=== PATIENT | female | born 1995 | race Caucasian/White ===

== ENCOUNTER 2017-01-18 18:33 | Emergency (ER) | payer OTHER ==
[~2017-01-18] VITALS: Ht 167.6 cm; Wt 60.9 kg
[~2017-01-18 18:33] MED LIST: AZIT500T26 PO; BCPILLS PO; KETO10TA PO
[2017-01-18 18:34] VITALS: TEMP 36.7; Ht 167.6 cm; Wt 60.9 kg
[2017-01-18] MEDS ORDERED: ALBUT/IPRATROP 3MG/0.5MG NEB 3 ML VIAL INH STA (18:47)
--- NOTE | 2017-01-18 19:22 | EMERGENCY ROOM VISIT NOTE ---
History First contact with patient: 18:39 Chief Complaint: RESPIRATORY PROBLEMS Stated Complaint: PNEUMONIA, PAIN SPREADING Nursing Triage Summary: patient states last week she was diagnosed with pneumonia and was was prescribed antibiotics. patient states she has no improvement in symptoms and is experiencing SOB , cough, and congestion still. History of Present Illness The patient is a 21 year old female who presents to the Emergency Room with complaints of ongoing right-sided chest pain, dyspnea, and overall not feeling better after Zithromax. The patient was seen here in the emergency department last week and was diagnosed with a right lower lobe pneumonia. She was advised to take the antibiotics, get plenty of rest, drink fluids, and follow-up with her PCP in one week. She states [facility] does not accept her insurance, and her PCP is 3 hours away. She is not feeling better at this point despite the antibiotics, and felt that she should be reevaluated. She was advised to return in 2 weeks to have a repeat chest x-ray performed. The patient states she does feel that the cough is improving slightly, however the pain in the right side of her chest is ongoing. She states that this time the pain does seem to be radiating down into her waist. She does continue to have an occasional, minimally productive cough. She denies any fever, chills, nausea, vomiting, diarrhea, or constipation. The patient denies any significant abdominal pain, with the exception of the pain in her waist. She describes pain in her chest as sharp, and it is associated with difficulty breathing. The dyspnea is worse with ambulating or when trying to take a deep breath. The patient has been taking ibuprofen and Tylenol intermittently to help with the pain. She has not taken any cough medication. She does report mild congestion , sore throat. Review of Systems A complete 10 point review of systems was reviewed with the patient with pertinent positives and negatives as per history of present illness. All else were negative. Past Medical/Surgical History Medical Problems: (1) Cellulitis of earlobe (2) Contact dermatitis (3) No Known Active Medical Problems Social History Smoking Status: Never Smoker Drug Use: none Marital Status: single Current/Historical Medications Scheduled Azithromycin (Zithromax), 500 MG PO DAILY Control Pills ( Control Pills), 1 TAB PO HS Cholecalciferol (Vitamin D3), 1 TAB PO DAILY Cyanocobalamin (B12), 1 TAB PO DAILY Multiple Vitamins W/ Minerals (Hair/Skin/Nails), 3 TABS PO DAILY Scheduled PRN Acetaminophen (Tylenol), 500 MG PO BID PRN for Pain Albuterol Sulfate (Proair Respiclick), 2 PUFFS INH Q4 PRN for Wheezing Benzonatate (Tessalon Perles), 200 MG PO TID PRN for Cough Ibuprofen (Advil), 600 MG PO TID PRN for Pain Physical Exam Vital Signs Date Time Temp Pulse Resp B/P (MAP) Pulse Ox O2 Delivery O2 Flow Rate FiO2 01/18/17 18:49 97 Room Air 01/18/17 18:34 36.7 70 18 138/84 98 Room Air Physical Exam VITALS: Vitals are noted on the nurse's note and reviewed by myself. Vital signs stable. GENERAL: This is a 21-year-old white female, in no acute distress, nondiaphoretic, well-developed well-nourished. SKIN: The skin was without rashes, erythema, edema, or bruising. There is no tenting of the skin. Capillary reflex less than 2 seconds. HEAD: Normocephalic atraumatic. EARS: External auditory canals clear, tympanic membranes pearly mancilla without erythema or effusion bilaterally. EYES: Pupils equal round and reactive to light and accommodation. Conjunctivae without injection, sclerae without icterus. Extraocular movements intact. NOSE: Patent, turbinates without inflammation or discharge. No sinus tenderness. MOUTH: Mucous membranes moist. Tonsils are not enlarged. Pharynx without erythema or exudate. Uvula midline. Airway patent. Tongue does not deviate. NECK: Supple without nuchal rigidity. No lymphadenopathy. No thyromegaly. Cervical spine is nontender. No JVD. HEART: Regular rate and rhythm without murmurs gallops or rubs. LUNGS: Mild wheezing and rhonchi throughout. No dullness to percussion. No retractions or accessory muscle use. The patient is very tender in the right lateral ribs. MUSCULOSKELETAL: No muscle atrophy, erythema, or edema noted. Full range of motion without joint tenderness in all extremities. No tenderness to palpation. Normal gait. Strength 5/5 throughout. NEURO: Patient was alert and oriented to person place and time. Normal sensation to light and sharp touch. No focal neurological deficits. Medical Decision & Procedures ER Provider Diagnostic Interpretation: CHEST 2 VIEWS ROUTINE HISTORY: 21 years-old Female cough, right chest pain, pneumonia acute cough with right-sided chest pain and pneumonia COMPARISON: Chest radiograph 01/11/2017 TECHNIQUE: Frontal and lateral views of the chest FINDINGS: Cardiomediastinal and hilar silhouettes are within normal limits. There is no pneumothorax or pleural effusion. There is improved aeration of the right lung base from prior study with minimal linear subsegmental right basilar opacity now present within the area of previous airspace consolidation. Bones appear grossly intact. IMPRESSION: Improved aeration of the right lung base with persistent residual basal right lower lobe opacity, now appearing somewhat linear in morphology. This may reflect persistent pneumonia and/or developing pleural parenchymal scar formation. The above report was generated using voice recognition software. It may contain grammatical, syntax or spelling errors. Electronically signed by: Jeremías Harding M.D. 01/18/2017 7:56 PM Dictated Date/Time: 01/18/2017 7:51 PM Medications Administered Medications (Trade) Dose Ordered Sig/Latonya Route Start Time Stop Time Status Last Admin Dose Admin Albuterol/ Ipratropium (Duoneb) 3 ml NOW STAT INH 01/18/17 18:47 01/18/17 18:48 DC 01/18/17 18:54 3 ML Medical Decision The patient was seen and evaluated as above. She was given a DuoNeb treatment due to the wheezing and rhonchi noted in her lungs. She states she did not feel better after this treatment, and in fact states she began feeling worse. A repeat chest x-ray was ordered to evaluate the pneumonia at this time. It showed partial resolution of the pneumonia. I do feel that the patient's symptoms are related to her pneumonia. I had a long discussion with her at bedside regarding the healing process for pneumonia. I advised her that it may take up to several weeks until she begins feeling significantly better. She was encouraged to follow up outpatient with her PCP. I did recommend an inhaler and provided her with some cough medicine to help. She was given instructions on when to return to the emergency department. Discharge instructions were reviewed and the patient was discharged home in good condition. Differential diagnosis includes pneumonia, bronchitis, upper respiratory infection, costochondritis, rib fracture, malignancy, and others Medication Reconcilliation Current Medication List: was personally reviewed by me Blood Pressure Screening Patient's blood pressure: Normal blood pressure Impression Primary Impression: Pneumonia Departure Information Dispostion Home / Self-Care Condition GOOD Prescriptions Benzonatate (Tessalon Perles) 200 Mg Cap 200 MG PO TID Y for Cough, #30 CAP Prov: Gely Reyes PA-C 01/18/17 Albuterol Sulfate (Proair Respiclick) 108 Mcg/Act Aer 2 PUFFS INH Q4 Y for Wheezing, #1 INHALER Prov: Gely Reyes PA-C 01/18/17 Referrals No Doctor, Assigned (PCP) Patient Instructions ED Pneumonia Adult, My [facility] Additional Instructions You were seen in the emergency department for cough and difficulty breathing. You were diagnosed last week with pneumonia. Repeat chest x-ray did show some resolution of the pneumonia. You were given a prescription for an albuterol inhaler to use for wheezing. Please use this as directed. You may take benzonatate 3 times daily to help with cough. Please get plenty of rest and drink plenty of fluids. Ibuprofen(Motrin, Advil) may be used for fever or pain. Use 600mg every six hours as needed. Take with food. Avoid using more than 2400mg in a 24 hour period. Do not use 2400mg per day for more than three consecutive days without physician direction. Prolonged inappropriate use can lead to stomach upset or ulcers. (AND/OR) Acetaminophen(Tylenol) may be used for fever or pain. Use 1000mg every six hours as needed. Avoid using more than 3000mg in a 24 hour period. As discussed, it may take 4-6 weeks or longer for your symptoms to completely resolve. Continue to monitor for improvement, however you may not feel completely better for a while. Follow-up with your PCP next week for recheck. I do recommend a repeat chest x- ray in approximately 1 month to ensure complete resolution. Return to the emergency Department or see your PCP for worsening difficulty breathing, chest pain, fever, chills, nausea, vomiting, wheezing, or other concerning symptoms. School Instructions Return To School: 2 days Problem Qualifiers Primary Impression: Pneumonia Pneumonia type: due to unspecified organism Laterality: right Lung location : lower lobe of lung Qualified Codes: J18.1 - Lobar pneumonia, unspecified organism
[2017-01-18] MEDS ORDERED: ACET-1256 PO (19:25)
[2017-01-18] MEDS ORDERED: IBUP-1050 PO (19:25)
[2017-01-18] MEDS ORDERED: CYAN100073 PO (19:28)
[2017-01-18] MEDS ORDERED: CHOL1000 PO (19:28)
[2017-01-18] MEDS ORDERED: MULT-580 PO (19:28)
--- NOTE | 2017-01-18 19:57 | DIAGNOSTIC IMAGING REPORT ---
CHEST 2 VIEWS ROUTINE HISTORY: 21 years-old Female cough, right chest pain, pneumonia acute cough with right-sided chest pain and pneumonia COMPARISON: Chest radiograph 01/11/2017 TECHNIQUE: Frontal and lateral views of the chest FINDINGS: Cardiomediastinal and hilar silhouettes are within normal limits. There is no pneumothorax or pleural effusion. There is improved aeration of the right lung base from prior study with minimal linear subsegmental right basilar opacity now present within the area of previous airspace consolidation. Bones appear grossly intact. IMPRESSION: Improved aeration of the right lung base with persistent residual basal right lower lobe opacity, now appearing somewhat linear in morphology. This may reflect persistent pneumonia and/or developing pleural parenchymal scar formation. The above report was generated using voice recognition software. It may contain grammatical, syntax or spelling errors. Electronically signed by: Jeremías Harding M.D. 01/18/2017 7:56 PM Dictated Date/Time: 01/18/2017 7:51 PM
[2017-01-18] MEDS ORDERED: BENZ1CAP90 PO (20:18)
[2017-01-18] MEDS ORDERED: ALBU18002 INH (20:18)
[2017-01-18 20:27] VITALS: BP 106/63; PULSE 77; O2SAT 99
== END 2017-01-18 20:29 | disposition home or self-care (01) ==
LOC: C.EDB 18:34
DX: J18.1 Lobar pneumonia, unspecified organism (principal); Z79.3 Long term (current) use of hormonal contraceptives

== ENCOUNTER 2017-03-28 23:48 | Emergency (ER) | payer OTHER ==
[~2017-03-28] VITALS: Ht 167.6 cm; Wt 62.1 kg
[~2017-03-28 23:48] MED LIST changes: +ACET-1256 PO; +ALBU18002 INH; +BENZ1CAP90 PO; +CHOL1000 PO; +CYAN100073 PO; +IBUP-1050 PO; -KETO10TA PO; +MULT-580 PO
[2017-03-28 23:58] VITALS: TEMP 38.2; Ht 167.6 cm; Wt 62.1 kg
[2017-03-29] MEDS ORDERED: ACETAMINOPHEN 500 MG TAB PO STA (00:28)
[2017-03-29] MEDS ORDERED: ONDANSETRON INJ 2 MG/ML 2 ML VIAL IV STA (00:28)
[2017-03-29] MEDS ORDERED: SODIUM CHLORIDE 0.9% 1000ML 1,000 ML IV STA (00:28)
[2017-03-29 01:07] LABS: BASO % 0.3 %; BASO ABS # 0.02 K/uL (0-0.2); EOS % 2.2 %; EOS ABS # 0.15 K/uL (0-0.5); HEMATOCRIT 38.4 % (37-47); HEMOGLOBIN 13.3 g/dL (12.0-16.0); IG# 0.02 K/uL (0.00-0.02); LYMPH % 13.7 %; LYMPH ABS # 0.92 K/uL (1.2-3.4); MEAN CELL VOLUME 86.5 fL (80-100); MEAN CORPUSCULAR HGB CONC 34.6 g/dl (32-36); MEAN PLATELET VOLUME 10.1 fL (7.4-10.4); MONO % 6.5 %; MONO ABS # 0.44 K/uL (0.11-0.59); NEUT ABS # 5.17 K/uL (1.4-6.5); PLATELET COUNT 247 K/uL (130-400); RED CELL DISTRIBUTION WIDTH CV 14.2 % (11.5-14.5); RED CELL DISTRIBUTION WIDTH SD 44.1 fL (36.4-46.3); WHITE BLOOD COUNT 6.72 K/uL (4.8-10.8)
[2017-03-29 01:19] LABS: INFLUENZA B ANTIGEN Neg for Influ B (NEG)
[2017-03-29 01:20] LABS: ALBUMIN 3.4 gm/dl (3.4-5.0); ALT/SGPT 29 U/L (12-78); AST/SGOT 20 U/L (15-37); BLOOD UREA NITROGEN 11 mg/dl (7-18); CALCIUM 8.5 mg/dl (8.5-10.1); CARBON DIOXIDE 26 mmol/L (21-32); CREATININE 0.96 mg/dl (0.60-1.20); GLUCOSE 105 mg/dl (70-99); POTASSIUM 3.4 mmol/L (3.5-5.1); SODIUM 137 mmol/L (136-145)
[2017-03-29 01:25] LABS: ALKALINE PHOSPHATASE 64 U/L (45-117); TOTAL PROTEIN 7.5 gm/dl (6.4-8.2)
[2017-03-29] MEDS ORDERED: FAMOTIDINE 20MG/5ML IV PUSH IV STA (02:02)
[2017-03-29] MEDS ORDERED: ALUMINUM/MAGNESIUM SUSP 30 ML UDC PO STA (02:02)
--- NOTE | 2017-03-29 02:02 | EMERGENCY ROOM VISIT NOTE ---
History Report prepared by Drew: Shayy Ta Under the Supervision of: Dr. Aida Arango D.O. First contact with patient: 00:06 Chief Complaint: FLU LIKE SX Stated Complaint: CHEST PAIN,COUGH,FEVER,CHILLS History of Present Illness The patient is a 21 year old female who presents to the Emergency Room with complaints of sudden flu like symptoms starting seven hours ago. The patient states that she had pneumonia three months ago and again over break. She states that she was due for a chest x-ray, but has not had time to get one. The patient states that she felt fine all day and went to the gym. She reports that shortly after returning home she started to spike a fever and decided to come in when it was 101.5. She states that her normal body temperature runs low at 96. The patient denies taking any Tylenol and Motrin. The patient complains of chills, headache, chest pain, tasting blood, nausea, and recent constipation. The patient denies rashes, getting the flu shot, vomiting, and diarrhea. The patient is worried that something is wrong with her immune system. Source of History: patient Onset: seven hours ago Position: other (global) Quality: other (flu like) Timing: other (sudden) Associated Symptoms: + fevers, + chills, + headache, + chest pain, + nausea , No vomiting, No diarrhea, No rash Note: The patient complains of tasting blood and recent constipation. Review of Systems See HPI for pertinent positives & negatives. A total of 10 systems reviewed and were otherwise negative. Past Medical & Surgical Medical Problems: (1) Cellulitis of earlobe (2) Contact dermatitis (3) History of pneumonia Family History FHx: cancer Social History Smoking Status: Never Smoker Drug Use: none Marital Status: single Housing Status: lives with roommate Occupation Status: [employer] student Current/Historical Medications Scheduled Control Pills ( Control Pills), 1 TAB PO HS Cholecalciferol (Vitamin D3), 1 TAB PO DAILY Multiple Vitamins W/ Minerals (Hair/Skin/Nails), 3 TABS PO DAILY Allergies Coded Allergies: Miconazole (Verified Allergy, Severe, SEVERE BURNING PAIN, 03/29/17) Pineapple (Verified Allergy, Severe, GI SYMPTOMS, 03/29/17) Coconut (Unverified Allergy, Mild, TONGUE SWELLING, 03/29/17) Physical Exam Vital Signs Date Time Temp Pulse Resp B/P (MAP) Pulse Ox O2 Delivery O2 Flow Rate FiO2 03/29/17 02:16 78 18 119/68 99 03/29/17 01:33 81 18 119/68 99 Room Air 03/28/17 23:58 38.2 87 18 135/72 99 Room Air Physical Exam GENERAL: alert, well appearing, well nourished, no distress, non-toxic EYE EXAM: normal conjunctiva, PERRL and EOM's grossly intact OROPHARYNX: no exudate, no erythema, lips, buccal mucosa, and tongue normal and mucous membranes are moist NECK: supple, no nuchal rigidity, no adenopathy, non-tender LUNGS: Clear to auscultation. Normal chest wall mechanics HEART: no murmurs, S1 normal and S2 normal ABDOMEN: abdomen soft, non-tender, normo-active bowel sounds, no masses, no rebound or guarding. BACK: Back is symmetrical on inspection and there is no deformity, no midline tenderness, no CVA tenderness. SKIN: no rashes and no bruising UPPER EXTREMITIES: upper extremities are grossly normal. LOWER EXTREMITIES: No pitting edema. NEURO EXAM: Normal sensorium, cranial nerves II-XII grossly intact, normal speech, no gross weakness of arms, no gross weakness of legs. Medical Decision & Procedures ER Provider Diagnostic Interpretation: Chest X-Ray: The results were interpreted by me. No cardiomegaly. No effusion. No wide mediastinum. no focal infiltrate. Appears improved compared to prior. Laboratory Results 03/29/17 00:50 Red Blood Count 4.44, Mean Corpuscular Volume 86.5, Mean Corpuscular Hemoglobin 30.0, Mean Corpuscular Hemoglobin Concent 34.6, Mean Platelet Volume 10.1, Neutrophils (%) (Auto) 77.0, Lymphocytes (%) (Auto) 13.7, Monocytes (%) (Auto) 6.5, Eosinophils (%) (Auto) 2.2, Basophils (%) (Auto) 0.3, Neutrophils # (Auto) 5.17, Lymphocytes # (Auto) 0.92, Monocytes # (Auto) 0.44, Eosinophils # (Auto) 0.15, Basophils # (Auto) 0.02 03/29/17 00:50 Test 03/29/17 00:50 White Blood Count 6.72 K/uL (4.8-10.8) Red Blood Count 4.44 M/uL (4.2-5.4) Hemoglobin 13.3 g/dL (12.0-16.0) Hematocrit 38.4 % (37-47) Mean Corpuscular Volume 86.5 fL (80-100) Mean Corpuscular Hemoglobin 30.0 pg (25-34) Mean Corpuscular Hemoglobin Concent 34.6 g/dl (32-36) Platelet Count 247 K/uL (130-400) Mean Platelet Volume 10.1 fL (7.4-10.4) Neutrophils (%) (Auto) 77.0 % Lymphocytes (%) (Auto) 13.7 % Monocytes (%) (Auto) 6.5 % Eosinophils (%) (Auto) 2.2 % Basophils (%) (Auto) 0.3 % Neutrophils # (Auto) 5.17 K/uL (1.4-6.5) Lymphocytes # (Auto) 0.92 K/uL (1.2-3.4) Monocytes # (Auto) 0.44 K/uL (0.11-0.59) Eosinophils # (Auto) 0.15 K/uL (0-0.5) Basophils # (Auto) 0.02 K/uL (0-0.2) RDW Standard Deviation 44.1 fL (36.4-46.3) RDW Coefficient of Variation 14.2 % (11.5-14.5) Immature Granulocyte % (Auto) 0.3 % Immature Granulocyte # (Auto) 0.02 K/uL (0.00-0.02) Anion Gap 5.0 mmol/L (3-11) Est Creatinine Clear Calc Drug Dose 86.7 ml/min Estimated GFR () 98.0 Estimated GFR (Non- 84.5 BUN/Creatinine Ratio 11.9 (10-20) Calcium Level 8.5 mg/dl (8.5-10.1) Total Bilirubin 0.4 mg/dl (0.2-1) Aspartate Amino Transf (AST/SGOT) 20 U/L (15-37) Alanine Aminotransferase (ALT/SGPT) 29 U/L (12-78) Alkaline Phosphatase 64 U/L (45-117) Troponin I < 0.015 ng/ml (0-0.045) Total Protein 7.5 gm/dl (6.4-8.2) Albumin 3.4 gm/dl (3.4-5.0) Globulin 4.1 gm/dl (2.5-4.0) Albumin/Globulin Ratio 0.8 (0.9-2) Human Chorionic Gonadotropin, Qual NEG (NEG) Influenza Type A Antigen Neg for Influ A (NEG) Influenza Type B Antigen Neg for Influ B (NEG) Laboratory results per my review. Medications Administered Medications (Trade) Dose Ordered Sig/Latonya Route Start Time Stop Time Status Last Admin Dose Admin Sodium Chloride 1,000 ml @ 999 mls/hr Q1H1M STAT IV 03/29/17 00:28 03/29/17 01:28 DC 03/29/17 00:47 999 MLS/HR Ondansetron HCl (Zofran Inj) 4 mg NOW STAT IV 03/29/17 00:28 03/29/17 00:30 DC 03/29/17 00:47 4 MG Acetaminophen (Tylenol Tab) 1,000 mg NOW STAT PO 03/29/17 00:28 03/29/17 00:30 DC 03/29/17 00:46 1,000 MG Famotidine (Pepcid 20mg Iv Push) 20 mg ONE STAT IV 03/29/17 02:02 03/29/17 02:03 DC 03/29/17 02:02 20 MG Al Hydroxide/Mg Hydroxide (Maalox Susp) 15 ml NOW STAT PO 03/29/17 02:02 03/29/17 02:03 DC 03/29/17 02:02 15 ML ECG Indication: chest pain Rate (beats per minute): 85 Rhythm: normal sinus Findings: T-wave inversion (isolated in V3), no acute ischemic change, no ectopy, other (normal axis, normal intervals, no EKG changes to suggest pericarditis) ED Course 0020: The patient was evaluated in room A4B. A complete history and physical exam was performed. 0028: Ordered Tylenol Tab 1000 mg PO, Zofran Inj 4 mg IV, NSS 1000 ml @ 999 mls/ hr IV. 0153: Upon reevaluation, the patient is feeling better. I discussed the findings and the treatment plan with the patient. She verbalizes agreement and understanding. The patient was discharged home. 0202: Ordered Maalox Susp 15 ml PO, Famotidine 20 mg IV. 0216: I interpreted the patient's EKG at this time. Medical Decision The patient is a 21 year old female who presents to the Emergency Room with complaints of sudden flu like symptoms starting seven hours ago. Differential diagnosis: Etiologies such as viral syndrome, otitis, pharyngitis, pneumonia, influenza, meningitis, urinary tract infection, sepsis, bacteremia, as well as others were entertained. Discussed with patient likely viral syndrome mimicking influenza. Labs and imaging here reassuring, vital signs stable. Patient improved with medications and hydration here. Discussed follow-up with family doctor, symptoms to watch and return for, she verbalized understanding was agreeable with plan. No evidence of bacteremia/sepsis. Patient well-appearing here throughout, ambulate with a steady gait, tolerating by mouth at bedside. Discussed additional concern for abnormal response, she should follow up with her family doctor for additional blood work and possible referral to an worsted winder or recovery room rn. Medication Reconcilliation Current Medication List: was personally reviewed by me Blood Pressure Screening Patient's blood pressure: Normal blood pressure Blood pressure disposition: Did not require urgent referral Impression Primary Impression: Influenza-like symptoms Scribe Attestation The scribe's documentation has been prepared under my direction and personally reviewed by me in its entirety. I confirm that the note above accurately reflects all work, treatment, procedures, and medical decision making performed by me. Departure Information Dispostion Home / Self-Care Referrals No Doctor, Assigned (PCP) Forms HOME CARE DOCUMENTATION FORM, IMPORTANT VISIT INFORMATION Patient Instructions My [facility] Additional Instructions Please drink plenty of clear liquids especially water to stay well-hydrated. You may use Tylenol and ibuprofen as needed for fevers and pain. Please eat a bland diet as tolerated, once you're feeling better you may return to normal diet. If you develop any worsening pain, increased fevers, difficulty breathing , worsening cough or noticed blood in your sputum, vomiting and diarrhea, black or bloody stools, dizziness, chest pain, or you've any other new concerns, please return the emergency room.
[2017-03-29 02:16] VITALS: BP 119/68; PULSE 78; O2SAT 99
--- NOTE | 2017-03-29 07:26 | DIAGNOSTIC IMAGING REPORT ---
CHEST 2 VIEWS ROUTINE HISTORY: Atypical chest pain, flu like sx COMPARISON: Chest 01/18/2017. FINDINGS: No focal lung consolidations to suggest pneumonia. No evidence for pulmonary edema. The heart is normal in size. No pleural effusions. No pneumothorax. Nodular density overlying the lateral aspect of the right lower lobe likely represents a nipple shadow. IMPRESSION: No acute process. Electronically signed by: Rajendra Means M.D. 03/29/2017 7:25 AM Dictated Date/Time: 03/29/2017 7:24 AM
== END 2017-03-29 02:18 | disposition home or self-care (01) ==
LOC: C.EDB 23:50 → C.EDA 03-29 02:18
DX: R50.9 Fever, unspecified (principal); R51 Headache; R07.9 Chest pain, unspecified; R11.0 Nausea; K59.00 Constipation, unspecified; Z87.01 Personal history of pneumonia (recurrent); Z79.3 Long term (current) use of hormonal contraceptives